=== PATIENT | male | born 1990 | race African-American/Black ===

== ENCOUNTER 2020-02-17 13:22 | Emergency (ER) | payer MEDICAID, SELFPAY ==
[~2020-02-17] VITALS: Ht 167.6 cm; Wt 65.8 kg
[2020-02-17 13:26] VITALS: Ht 167.6 cm; Wt 65.8 kg
[2020-02-17 15:26] LABS: PLATELET COUNT 278 x10^3mcL (130-400); RED CELL DISTRIBUTION WIDTH 13.6 % (11.5-14.5)
[2020-02-17 15:27] LABS: BASOPHIL % 0 % (0-2)
[2020-02-17 15:52] LABS: CALCIUM 9.9 mg/dL (8.5-10.1); CARBON DIOXIDE 29.8 mmol/L (21-32); CHLORIDE SERUM 102 mmol/L (98-107); GFR1 > 60 mL/min; GLUCOSE SERUM 118 mg/dL (74-106); SODIUM SERUM 141 mmol/L (136-145)
[2020-02-17 15:55] LABS: ALBUMIN 4.7 g/dL (3.4-5.0); ALKALINE PHOSPHATASE 82 U/L (46-116); ALT/SGPT 65 U/L (16-63); AST/SGOT 28 U/L (15-37); BILIRUBIN TOTAL 0.5 mg/dL (0.20-1.00); LIPASE 62 IU/L (73-393)
[2020-02-17 16:00] LABS: TOTAL PROTEIN, SERUM 8.5 g/dL (6.4-8.2)
[2020-02-17 17:25] VITALS: BP 134/84
== END 2020-02-17 17:25 | disposition home or self-care (01) ==
LOC: ED 13:22
PROVIDERS: Emergency Medicine
DX: F12.288 Cannabis dependence with other cannabis-induced disorder (principal); Z88.5 Allergy status to narcotic agent
CPT/HCPCS: J1630; J1885; J2405; J7030

== ENCOUNTER 2020-02-19 08:37 | Emergency (ER) | payer MEDICAID, SELFPAY ==
[~2020-02-19] VITALS: Ht 167.6 cm; Wt 68.0 kg
[2020-02-19 08:38] VITALS: BP 126/78; Ht 167.6 cm; Wt 68.0 kg
== END 2020-02-19 10:07 | disposition left against medical advice (07) ==
LOC: ED 08:37
DX: R10.816 Epigastric abdominal tenderness (principal); R11.2 Nausea with vomiting, unspecified; Z88.5 Allergy status to narcotic agent